=== PATIENT | female | born 1945 | race Caucasian/White ===

== ENCOUNTER → 2019-04-28 | Outpatient (CLI) | payer MEDICARE ==
[~2019-04-28] MED LIST: AMLO10TA8 PO; CARV12.52 PO; CHOL2000 PO; GLIP2.5T3 PO; ROSU20TA2 PO
== END | disposition home or self-care (01) ==
LOC: EDSTATUS 04-15 18:00 → ROC 08:50
PROVIDERS: ATTEND Radiology Radiation Oncology
DX: C51.9 Malignant neoplasm of vulva, unspecified (principal); Z87.891 Personal history of nicotine dependence
CPT/HCPCS: G0463

== ENCOUNTER → 2019-05-14 | Outpatient (CLI) | payer MEDICARE | END | disposition home or self-care (01) | LOC: ROC 09:07 | PROVIDERS: ATTEND Radiology Radiation Oncology | DX: C51.9 Malignant neoplasm of vulva, unspecified (principal) | CPT/HCPCS: G0463 ==